=== PATIENT | female | born 1970 | race Caucasian/White ===

== ENCOUNTER 2022-09-24 11:10 | Day surgery (SDC) | payer OTHER ==
[2022-09-23 09:25] VITALS: BMI 26.6
[2022-09-24] MEDS ORDERED: BUPIVACAINE HCL/EPINEPHRINE/PF 30 ML VIAL IJ ONE (11:55)
[2022-09-24] MEDS ORDERED: BUPIVACAINE HCL/PF 0.5% (5 MG/ML) 30 ML VIAL IJ ONE (12:13)
[2022-09-24] MEDS ORDERED: MIDAZOLAM HCL 2 MG/2 ML SINGLE DOSE VIAL ONE (12:14)
[2022-09-24] MEDS ORDERED: FENTANYL CITRATE/PF 50 MCG/ML VIAL ONE (12:14)
[2022-09-24] MEDS ORDERED: PROPOFOL 40 ML ONE (12:33)
[2022-09-24] MEDS ORDERED: METOCLOPRAMIDE HCL INJECTION 10 MG/2 ML VIAL ONE (12:43)
[2022-09-24] MEDS ORDERED: ONDANSETRON 4 MG/2 ML VIAL ONE (12:43)
[2022-09-24] MEDS ORDERED: methylPREDNISolone ACET (DEPO) 40 MG/1 ML VIAL ONE (13:05)
[2022-09-24] MEDS ORDERED: PROPOFOL 20 ML ONE (13:07)
[2022-09-24] MEDS ORDERED: KETOROLAC TROMETHAMINE 30 MG/1 ML VIAL ONE (13:40)
[2022-09-24] MEDS ORDERED: LACTATED RINGERS SOLUTION 1,000 ML IV SCH (14:00)
[2022-09-24] MEDS ORDERED: ACETAMINOPHEN 1000 MG/100 ML BAG IVPB ONE (14:00)
[2022-09-24] MEDS ORDERED: KETOROLAC TROMETHAMINE 30 MG/1 ML VIAL IVPUSH SCH (14:00)
[2022-09-24] MEDS ORDERED: oxyCODONE HCL 5 MG TABLET PO PRN (14:03)
[2022-09-24 14:52] VITALS: RESP 16; TEMP 97.8
[2022-09-24 15:49] VITALS: BP 118/67; PULSE 69
== END 2022-09-24 16:00 | disposition home or self-care (01) ==
LOC: FASU 11:10
PROVIDERS: ATTEND Orthopaedic Surgery
PROC: 0SQC4ZZ Repair Right Knee Joint, Percutaneous Endoscopic Approach (ICD-10-PCS; principal; 2022-09-24 13:00)
PROC: 0SQC4ZZ Repair Right Knee Joint, Percutaneous Endoscopic Approach (ICD-10-PCS; 2022-09-24 13:00)
DX: S83.241A Other tear of medial meniscus, current injury, right knee, initial encounter (principal); X58.XXXA Exposure to other specified factors, initial encounter; Y93.9 Activity, unspecified; Y92.9 Unspecified place or not applicable; M17.11 Unilateral primary osteoarthritis, right knee
CPT/HCPCS: 94760; C1713